=== PATIENT | male | born 1950 | race Caucasian/White ===

== ENCOUNTER 2018-04-11 12:05 | Inpatient (IN) | payer MEDICARE, OTHER ==
[~2018-04-11] VITALS: Ht 190.5 cm; Wt 85.3 kg
--- NOTE | 2018-04-11 12:24 | NUR ---
BIB [facility] WHILE WALKING HIS DOG. HEAD LAC -KO. NECK PAIN. PT AAOX4, VSS. DENIES DIZZINESS, N/V, WEAKNESS OR ANY OTHER DISCOMFORT. AWAITNG EVAL BY ERMD & WILL CONT TO MONITOR.
[2018-04-11] MEDS ORDERED: KETOROLAC TROMETHAMINE INJ 30 MG/ML VIAL IV ONE (13:00)
[2018-04-11] MEDS ORDERED: IV NS 0.9% 1,000 ML BAG IV ONE (13:00)
[2018-04-11] MEDS ORDERED: TDAP [DIPH/PERTUSSIS/TET] 0.5 ML VIAL IM ONE ×2 (13:00→13:07)
[2018-04-11 13:02] LABS: BASOPHILS % (AUTO) 0.6 % (0.0-2.0); HEMATOCRIT 36 % (39-51); HEMOGLOBIN 12.1 g/dL (13.5-17.5); LYMPHOCYTES # (AUTO) 0.9 /CMM (0.8-4.8); LYMPHOCYTES % (AUTO) 15.5 % (20.0-44.0); MEAN CORPUSCULAR HGB CONC 33 g/dl (31.0-36.0); MEAN CORPUSCULAR VOLUME 95 fL (80-96); MONOCYTES # (AUTO) 0.3 /CMM (0.1-1.30); MONOCYTES % (AUTO) 6.1 % (2.0-12.0); NEUTROPHILS # (AUTO) 4.2 /CMM (1.8-8.9); NEUTROPHILS % (AUTO) 75.8 % (43.0-81.0); PLATELET COUNT (AUTO) 73 /CMM (150-450); RED BLOOD CELL COUNT(AUTO) 3.81 MIL/uL (4.5-6.0); WHITE BLOOD COUNT (AUTO) 5.5 K/uL (4.3-11.0)
[2018-04-11] MEDS ORDERED: KETOROLAC TROMETHAMINE 15 MG/ML VIAL ONE (13:06)
[2018-04-11 13:16] LABS: CREATININE 2.7 mg/dL (0.6-1.3); POTASSIUM 4.1 mmol/L (3.5-5.1)
[2018-04-11 13:30] LABS: EOSINOPHILS % (MANUAL) 1 % (0-4); LYMPHOCYTES % (MANUAL) 23 % (16-48); MONOCYTES % (MANUAL) 5 % (0-11.0); NEUTROPHILS % (MANUAL) 71 (42-76)
--- NOTE | 2018-04-11 13:30 | NUR ---
MEDICATED PER ERMD ORDER, PT BREE WELL.
--- NOTE | 2018-04-11 14:33 | NUR ---
CALLED NEUROLOGIST (DR CANCINO) @[phone]. NO ANSWER, LEFT VOICE MAIL. Addendum: 04/11/18 at 143 by VIANCA CALLED NEUROLOGIST DR CANCINO @ [phone] ([phone]); NO ANSWER, LEFT VOICE.
--- NOTE | 2018-04-11 14:53 | NUR ---
CALLED DR CASTRO FOR CONSULT BED 2. DR BELLE IS ON PHONE WITH GLORIA.
--- NOTE | 2018-04-11 15:02 | NUR ---
CALLED PANEL @1823, DERIAN AVUGHN PAGED.
--- NOTE | 2018-04-11 15:26 | NUR ---
PT ASLEEP, EYES CLOSED BUT EASILY AWAKEN BY VERBAL STIMULI. AAOX4, VSS. DENIES CP, SOB, DIZZINESS, N/V, NUMBNESS, WEAKNESS, BLURRED VISION @ THIS TIME. SPENCER 03/23 & BREE WELL. WILL CONT TO MONITOR, @ BS.
--- NOTE | 2018-04-11 16:38 | NUR ---
REPORT GIVEN TO HERMELINDA CM FOR CONT OF CARE.
--- NOTE | 2018-04-11 17:00 | NUR ---
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
--- NOTE | 2018-04-11 17:20 | NUR ---
DESKTOP SPECIALIST: neuro status: face symmetric, equal speech, pupils reaction+, symmetric, precataract, arms/legs activity symmetric, strong
[2018-04-11 17:30] VITALS: BP 183/103
[2018-04-11 17:45] VITALS: BP 164/89
[2018-04-11 18:00] VITALS: BP 172/98
--- NOTE | 2018-04-11 18:15 | NUR ---
AIRCRAFT DISPATCHER: assessment done: SR, SBP 164-183, no any actual orders with TD admission, see is on case, pt.is with history of DM (insulin dependent), pancreatitis, home meds list is not fill out, will page/message , notified charge nurse
--- NOTE | 2018-04-11 18:30 | NUR ---
RN LENORA: will try to print out pt.medical record from pt.iPhone, no any record got from ER, charge nurse paged
--- NOTE | 2018-04-11 18:43 | NUR ---
ADMITTING MD FROM [facility] PAGED FOR ADMISSION ORDERS AWAITS RESPONSE.
[2018-04-11 18:45] VITALS: BP 170/83
--- NOTE | 2018-04-11 19:00 | NUR ---
PER EXCHANGE DR. FONTENOT IS FOAM RUBBER MOLDER NOW AND WILL GIVE ORDERS.PAGED DR. FONTENOT AND PER DR. FONTENOT HE DOESNT KNOW ANYTHING ABOUT PATIENT.HE WILL TEXT LUIS MENARD BEFORE HE CAN GIVE ORDERS,ENDORSED TO NIGHT RN TO FF. UP.
--- NOTE | 2018-04-11 19:15 | NUR ---
RN LENORA: charge nurse spoke with , he is going to text , next nurse Joy got report re all above
--- NOTE | 2018-04-11 19:17 | NUR ---
RN LENORA: unable to print out pt.med record, home meds list, notified next nurse Joy to complete home reconcile meds using pt.iphone data
[2018-04-11] MEDS ORDERED: ZOLPIDEM TARTRATE 5 MG TABLET PO PRN (19:30)
[2018-04-11] MEDS ORDERED: INSULIN REGULAR, HUMAN 100 UNIT/ML 3 ML VIAL SQ PRN (19:30)
[2018-04-11] MEDS ORDERED: ACETAMINOPHEN 325 MG TABLET PO PRN (19:30)
[2018-04-11] MEDS ORDERED: HYDROMORPHONE 1 MG/1 ML DISP.SYRIN IV PRN (19:30)
[2018-04-11] MEDS ORDERED: Z GUARD REMEDY 2 OZ OINT TP PRN (19:30)
[2018-04-11] MEDS ORDERED: ONDANSETRON HCL/PF 4 MG/2 ML VIAL IVP PRN (19:30)
[2018-04-11] MEDS ORDERED: DEXTROSE 50%-WATER 50 ML DISP.SYRIN IV PRN ×2 (19:30→22:00)
[2018-04-11 20:00] VITALS: BP 161/92
--- NOTE | 2018-04-11 20:00 | NUR ---
RN INITIAL NOTES RECEIVED PT RESTING IN BED. PT A&OX4 , ST ON MONITOR HR 102, IV IN R AC S/L, ALL NEEDS ANTICIPATED AND MET, ALL SAFETY PRECAUTION TAKEN. BED IN LOW LOCKED POSITION. CALL LIGHT WITHIN REACH. WILL CONT TO MONITOR.
[2018-04-11] MEDS: IV D5/ 0.9% NACL 1,000 ML IV PRN (20:22)
[2018-04-11] MEDS: HYDROCODONE/APAP 5/325MG 1 EACH TABLET PO PRN (20:23)
[2018-04-11] MEDS: BLOOD SUGAR DIAGNOSTIC 1 EACH STRIP IN SCH (22:56)
[2018-04-11] MEDS: INSULIN REGULAR, HUMAN 100 UNIT/ML 3 ML VIAL SQ PRN (23:03)
[2018-04-12] VITALS (7 sets, daily range): BP systolic 149–186; BP diastolic 88–95
[2018-04-12] MEDS ORDERED: BLOOD SUGAR DIAGNOSTIC 1 EACH STRIP IN SCH
[2018-04-12] MEDS ORDERED: AMLO5TAB4 PO (00:22)
[2018-04-12] MEDS ORDERED: ACET-73 PO (00:22)
--- NOTE | 2018-04-12 01:10 | NUR ---
RN NOTES PT WAS TAKEN TO CT BY RN AND COMMUNITY RESOURCE OFFICER.
[2018-04-12] MEDS: HYDROCODONE/APAP 5/325MG 1 EACH TABLET PO PRN ×4 (01:51→22:46)
[2018-04-12] MEDS: hydrALAZINE HCL IV 20 MG VIAL IV PRN ×2 (02:33→14:15)
[2018-04-12] MEDS ORDERED: PREG50CA PO (03:48)
[2018-04-12] MEDS ORDERED: ESOM40CA PO (03:48)
[2018-04-12] MEDS ORDERED: LIPA1CAP15 PO (03:48)
[2018-04-12] MEDS ORDERED: ASPI-1169 PO (03:48)
[2018-04-12] MEDS ORDERED: LOSA100T3 PO (03:48)
[2018-04-12] MEDS ORDERED: FENO145T35 PO (03:48)
[2018-04-12] MEDS ORDERED: RANI300T7 PO (03:48)
[2018-04-12] MEDS ORDERED: DULO30CA2 PO ×2 (03:48→08:11)
[2018-04-12] MEDS ORDERED: TRAM50TA2 PO (03:48)
--- NOTE | 2018-04-12 06:22 | NUR ---
RN CLOSING NOTES NO CHANGE IN PT'S CONDITION OVER NIGHT. PT WENT TO CT ORDERED. PT KEEP SAFE AND OVER NIGHT. ALL NEED ANTICIPATED AND MET.
[2018-04-12 06:23] LABS: BASOPHILS % (AUTO) 0.4 % (0.0-2.0); EOSINOPHILS % (AUTO) 1.2 % (0.0-6.0); HEMATOCRIT 32 % (39-51); HEMOGLOBIN 10.8 g/dL (13.5-17.5); LYMPHOCYTES # (AUTO) 0.8 /CMM (0.8-4.8); LYMPHOCYTES % (AUTO) 13.1 % (20.0-44.0); MEAN CORPUSCULAR HGB CONC 34 g/dl (31.0-36.0); MEAN CORPUSCULAR VOLUME 94 fL (80-96); MONOCYTES # (AUTO) 0.3 /CMM (0.1-1.30); MONOCYTES % (AUTO) 5.5 % (2.0-12.0); NEUTROPHILS % (AUTO) 79.8 % (43.0-81.0); PLATELET COUNT (AUTO) 73 /CMM (150-450); RED BLOOD CELL COUNT(AUTO) 3.36 MIL/uL (4.5-6.0); WHITE BLOOD COUNT (AUTO) 6.3 K/uL (4.3-11.0)
[2018-04-12 06:41] LABS: ALBUMIN 2.8 g/dL (3.4-5.0); BILIRUBIN,TOTAL 0.4 mg/dL (0.2-1.0); CALCIUM, SERUM 8.7 mg/dL (8.5-10.1); CREATININE 2.6 mg/dL (0.6-1.3); MAGNESIUM 2.1 mg/dL (1.8-2.4); PHOSPHORUS 3.5 mg/dL (2.5-4.9); POTASSIUM 4.3 mmol/L (3.5-5.1); TOTAL PROTEIN, SERUM 6.2 g/dL (6.4-8.2)
[2018-04-12 06:46] LABS: THYROID STIMULATING HORMONE 0.903 uIU/mL (0.358-3.74)
--- NOTE | 2018-04-12 07:30 | NUR ---
RN OPENING NOTES RECEIVED REPORT FROM OCEAN EXPORT AGENT RN. PT IS A&O X 4. RA O2 SAT IS 98%. NO COMPLAINTS OF RESPIRATORY DISTRESS. BED IS IN LOWEST AND LOCKED POSITION, CALL LIGHT WITHIN REACH. WILL CONTINUE CONTINUITY OF CARE. IV IS IN THE R AC RUNNING D5 NS @75 ML/HR.
[2018-04-12] MEDS: BLOOD SUGAR DIAGNOSTIC 1 EACH STRIP IN SCH ×4 (08:02→21:14)
[2018-04-12] MEDS ORDERED: INSU100V7 SQ (08:11)
[2018-04-12] MEDS ORDERED: ESOM20CA32 PO (08:11)
[2018-04-12] MEDS ORDERED: *INS HUMA SQ (08:11)
[2018-04-12] MEDS ORDERED: FISH12002 PO (08:11)
[2018-04-12] MEDS ORDERED: ZOLP5TAB2 PO (08:11)
[2018-04-12] MEDS ORDERED: ONDA4TAB11 PO (08:11)
[2018-04-12] MEDS ORDERED: DOCU100C36 PO (08:11)
[2018-04-12] MEDS ORDERED: MULT1TAB73 PO (08:11)
[2018-04-12] MEDS ORDERED: HYDR-4384 PO (08:11)
--- NOTE | 2018-04-12 08:11 | NUR ---
RN NOTE: RECEIVED AN ENDORSEMENT FROM THE JUVENILE CORRECTIONAL OFFICER NURSE REGARDING THE PATIENT'S MEDICATION RECONCILIATION. PER JUVENILE CORRECTIONAL OFFICER NURSE, THE PATIENT'S HOME MEDICATIONS WERE NOT PLACED IN THE SYSTEM. THE LIST OF HOME MEDICATIONS WERE PLACED IN THE SYSTEM AND INFORMED LUIS MENARD DNP ABOUT IT. AWAITING FOR THE HOSPITALIST TO DO MEDICATION RECONCILIATION. PATIENT MADE AWARE.
[2018-04-12] MEDS: PANTOPRAZOLE 40 MG TABLET.DR PO SCH ×2 (08:17→08:32)
[2018-04-12] MEDS: DOCUSATE SODIUM 100 MG CAPSULE PO SCH ×3 (08:32→17:19)
[2018-04-12] MEDS: AMLODIPINE BESYLATE 5 MG TABLET PO SCH (08:32)
[2018-04-12 08:33] LABS: EOSINOPHILS % (MANUAL) 2 % (0-4); LYMPHOCYTES % (MANUAL) 10 % (16-48); MONOCYTES % (MANUAL) 3 % (0-11.0); NEUTROPHILS % (MANUAL) 85 (42-76)
[2018-04-12] MEDS: IV D5/ 0.9% NACL 1,000 ML IV PRN ×2 (09:28→22:44)
--- NOTE | 2018-04-12 14:10 | NUR ---
RN NOTES RECHECKED PT'S BP FROM AFTERNOON VITALS. 170/77 HR 78. PT GIVEN HYDRALAZINE.
--- NOTE | 2018-04-12 14:50 | NUR ---
RN NOTE: PATIENT REFUSED TO BE SEEN AND EVALUATED BY THE PHYSICAL THERAPIST. HE PREFERRED TO STAY IN BED JUST FOR TODAY. NOTED WITH MILD DIZZINESS, BUT FELT FINE WHILE IN BED. NO NAUSEA/VOMITING NOTED. PATIENT WILL TRY TO PARTICIPATE WITH PT BY TOMORROW.
--- NOTE | 2018-04-12 15:00 | NUR ---
RN NOTES PT FRUSTRATED COMPLAINS THAT HE HAS NOT SEEN HIS DR. PT REQUESTED A CHANGE OF HOSPITALIST FROM LUIS MENARD TO MARIXA BOBBY. PROVIDER WAS MADE AWARE. EXPLAINED TO THE PT THAT LUIS MENARD DNP WAS AWARE ABOUT HIS CONCERNS PER DERIAN HE WAS STILL WITH ANOTHER PT AND WILL SEE THE PT ONCE HE IS DONE MAKING ROUNDS. PT WAS ADAMANT TO CHANGE PROVIDERS. CALLED AND SPOKE WITH DR. CRUZ WHO WAS INFORMED ABOUT SITUATION AND HE SAID FOR MELODY BOBBY DNP TO SEE THE PT. DR. BOBBY WAS INFORMED OF TRANSFER OF PT CARE TO HIM AND WAS PRESENT AT PT BEDSIDE.
--- NOTE | 2018-04-12 16:00 | NUR ---
RN NOTES LUIS MENARD DNP WAS INFORMED OF TRANSFER OF CARE TO ANOTHER HOSPITALIST. HE GAVE ORDER TO CONTINUE HOME MEDICATION.
--- NOTE | 2018-04-12 16:32 | NUR ---
RN NOTES MD IBARRA MET WITH PT REMOVED NPO STATUS.
--- NOTE | 2018-04-12 16:58 | NUR ---
RN NOTES DR. BOBBY ORDERED WOUND TX ON RIGHT BACK SIDE OF HEAD.ORDERED NOTED AND CARRIED OUT AND PT MADE AWARE.
[2018-04-12] MEDS: TRAMADOL HCL 50 MG TABLET PO SCH (17:00)
[2018-04-12] MEDS ORDERED: ZOLPIDEM TARTRATE 5 MG TABLET PO PRN (17:00)
[2018-04-12] MEDS ORDERED: ONDANSETRON 4 MG TAB.RAPDIS PO PRN (17:00)
[2018-04-12] MEDS ORDERED: HYDROCODONE/APAP 5/325MG 1 EACH TABLET PO PRN (17:00)
[2018-04-12] MEDS ORDERED: DOCUSATE SODIUM 100 MG CAPSULE PO SCH (17:00)
[2018-04-12] MEDS: LIPASE/PROTEASE/AMYLASE 1 EACH CAPSULE.DR PO SCH (17:18)
[2018-04-12] MEDS: DULOXETINE HCL 30 MG CAPSULE.DR PO SCH (17:22)
[2018-04-12] MEDS: MUPIROCIN OINT 2% 22 GM TUBE TP SCH (17:53)
[2018-04-12] MEDS: HYDROGEN PEROXIDE 480 ML BOTTLE TP SCH ×2 (17:53→21:09)
[2018-04-12] MEDS: INSULIN REGULAR, HUMAN 100 UNIT/ML 3 ML VIAL SQ PRN ×2 (18:39→21:14)
--- NOTE | 2018-04-12 19:10 | NUR ---
RN CLOSING NOTES GAVE REPORT TO DISULFURIZER TENDER RN. PT IS A&O X 4. RA O2 SAT IS 98%. NO COMPLAINTS OF RESPIRATORY DISTRESS. BED IS IN LOWEST AND LOCKED POSITION, CALL LIGHT WITHIN REACH.CONTINUITY OF CARE HAS BEEN ENDORSED TO DISULFURIZER TENDER RN. IV IS IN THE R AC RUNNING D5 NS @75 ML/HR.
--- NOTE | 2018-04-12 20:00 | NUR ---
RN INITIAL NOTES RECEIVED PT IN BED, PT IS A&O X 4, RA O2 SAT IS 98%. IV IS IN THE R AC RUNNING D5 NS @75 ML/HR.NO COMPLAINTS OF RESPIRATORY DISTRESS. BED IS IN LOWEST AND LOCKED POSITION, CALL LIGHT WITHIN REACH. BED IN LOWEST AND LOCKED POSITION. WILL CONTINUE TO MONITOR.
[2018-04-12] MEDS: FAMOTIDINE (20 MG) 20 MG TABLET PO SCH ×2 (21:00→21:10)
[2018-04-12] MEDS ORDERED: INSULIN GLARGINE, 100 UNIT/ML CARTRIDGE SQ SCH (22:00)
[2018-04-13] VITALS: BP_SYST 130; BP_SYST 161; BP_DIAS 82; BP_DIAS 98
[2018-04-13] MEDS: HYDROCODONE/APAP 5/325MG 1 EACH TABLET PO PRN (03:45)
[2018-04-13 04:00] VITALS: BP 161/94
--- NOTE | 2018-04-13 06:32 | NUR ---
RN CLOSING NOTES PT IS A&O X 4. RA O2 SAT IS 98%. NO COMPLAINTS OF RESPIRATORY DISTRESS. BED IS IN LOWEST AND LOCKED POSITION, CALL LIGHT WITHIN REACH. IV IS IN THE R AC RUNNING D5 NS @75 ML/HR.ALL NEEDS ANTICIPATED AND MED. ALL DUE MEDS GIVEN. ALL SAFETY PRECAUTIONS TAKEN. WILL ENDORSE TO AM RN.
[2018-04-13] MEDS ORDERED: PANTOPRAZOLE 40 MG TABLET.DR PO SCH (07:30)
[2018-04-13 07:37] LABS: BASOPHILS % (AUTO) 0.4 % (0.0-2.0); EOSINOPHILS % (AUTO) 1.7 % (0.0-6.0); HEMATOCRIT 32 % (39-51); HEMOGLOBIN 10.9 g/dL (13.5-17.5); LYMPHOCYTES # (AUTO) 0.9 /CMM (0.8-4.8); LYMPHOCYTES % (AUTO) 16.6 % (20.0-44.0); MEAN CORPUSCULAR HGB CONC 34 g/dl (31.0-36.0); MEAN CORPUSCULAR VOLUME 94 fL (80-96); MONOCYTES # (AUTO) 0.4 /CMM (0.1-1.30); MONOCYTES % (AUTO) 6.7 % (2.0-12.0); NEUTROPHILS # (AUTO) 4.1 /CMM (1.8-8.9); NEUTROPHILS % (AUTO) 74.6 % (43.0-81.0); PLATELET COUNT (AUTO) 70 /CMM (150-450); RED BLOOD CELL COUNT(AUTO) 3.39 MIL/uL (4.5-6.0); WHITE BLOOD COUNT (AUTO) 5.5 K/uL (4.3-11.0)
[2018-04-13 07:50] LABS: ALBUMIN 2.8 g/dL (3.4-5.0); BILIRUBIN,TOTAL 0.5 mg/dL (0.2-1.0); CALCIUM, SERUM 8.7 mg/dL (8.5-10.1); CREATININE 2.4 mg/dL (0.6-1.3); PHOSPHORUS 3.2 mg/dL (2.5-4.9); POTASSIUM 3.9 mmol/L (3.5-5.1); TOTAL PROTEIN, SERUM 6.3 g/dL (6.4-8.2)
[2018-04-13 08:00] VITALS: BP 150/85
--- NOTE | 2018-04-13 08:00 | NUR ---
LENORA RN NOTE PT IS A&O X 4.IN BED , ALL NEEDS ATTENDED, RA O2 SAT IS 98%. NO COMPLAINTS OF RESPIRATORY DISTRESS. BED IS IN LOWEST AND LOCKED POSITION, CALL LIGHT WITHIN REACH. IV IS IN THE R AC RUNNING D5 NS @75 ML/HR.ALL NEEDS ANTICIPATED AND MED. ALL SAFETY PRECAUTIONS TAKEN. ON TELE MONITOR SR , CALL LIGHT WITHIN REACH , PLAN OF CARE DISCUSSED WITH PATIENT, REFUSED COZAAR ALSO HOLD ASA PATIENT HAS DX SUBDURAL HEMATOMA WILL F\U WITH CT HEAD TODAY
[2018-04-13] MEDS: LIPASE/PROTEASE/AMYLASE 1 EACH CAPSULE.DR PO SCH ×2 (08:06→13:02)
[2018-04-13] MEDS: DOCUSATE SODIUM 100 MG CAPSULE PO SCH (08:07)
[2018-04-13] MEDS: PANTOPRAZOLE 40 MG TABLET.DR PO SCH (08:08)
[2018-04-13] MEDS: FAMOTIDINE (20 MG) 20 MG TABLET PO SCH (08:08)
[2018-04-13] MEDS: TRAMADOL HCL 50 MG TABLET PO SCH (08:10)
[2018-04-13] MEDS: AMLODIPINE BESYLATE 5 MG TABLET PO SCH (08:11)
[2018-04-13] MEDS: DULOXETINE HCL 30 MG CAPSULE.DR PO SCH (08:11)
[2018-04-13] MEDS: HYDROGEN PEROXIDE 480 ML BOTTLE TP SCH (08:13)
[2018-04-13] MEDS: MUPIROCIN OINT 2% 22 GM TUBE TP SCH (08:13)
[2018-04-13] MEDS: INSULIN REGULAR, HUMAN 100 UNIT/ML 3 ML VIAL SQ PRN ×2 (08:17→13:05)
[2018-04-13] MEDS: BLOOD SUGAR DIAGNOSTIC 1 EACH STRIP IN SCH ×2 (08:19→12:26)
[2018-04-13] MEDS ORDERED: LOSARTAN POTASSIUM 50 MG TABLET PO SCH (09:00)
[2018-04-13] MEDS ORDERED: FENOFIBRATE NANOCRYS (145 MG) 145 MG TABLET PO SCH (09:00)
[2018-04-13] MEDS ORDERED: MULTIVITAMINS,THERAGRAN 1 UDTAB TABLET PO SCH (09:00)
[2018-04-13] MEDS ORDERED: ASPIRIN 81 MG TAB.CHEW PO SCH (09:00)
[2018-04-13] MEDS ORDERED: AMLODIPINE BESYLATE 5 MG TABLET PO SCH (09:00)
[2018-04-13] MEDS ORDERED: DULOXETINE HCL 30 MG CAPSULE.DR PO SCH ×2 (09:00)
--- NOTE | 2018-04-13 09:34 | NUR ---
jose alejandro rn note ct head done as ordered ,will f\u
[2018-04-13 10:37] LABS: EOSINOPHILS % (MANUAL) 3 % (0-4); LYMPHOCYTES % (MANUAL) 18 % (16-48); MONOCYTES % (MANUAL) 11 % (0-11.0); NEUTROPHILS % (MANUAL) 68 (42-76)
--- NOTE | 2018-04-13 10:56 | NUR ---
LENORA RN NOTE PT DONE ABLE TO AMBULATE WELL WITH WALKER STILL NEED STAND BY BY ASSISTANCE
[2018-04-13] MEDS: hydrALAZINE HCL IV 20 MG VIAL IV PRN (11:22)
[2018-04-13 12:00] VITALS: BP 180/89
--- NOTE | 2018-04-13 12:00 | NUR ---
LENORA RN NOTE HAVING LUNCH , ALL NEEDS ATTENDED, NO C]O PAIN OR DISCOMFORT AT THIS TIME BUT BP 180/89 HYDRALAZINE WILL BE GIVEN ORDERED , REFUSED TO HAVE IVF, WILL NOTIFIED TO
--- NOTE | 2018-04-13 14:28 | NUR ---
LENORA RN NOTE SEEN BY JOHANA BOBBY WITH ORDER TO D\C HOME , REPORTED THAT PER PT SUGGESTED TO GO REHAB BUT STILL ORDER TO GO HOME PER PATIENT REQUEST
--- NOTE | 2018-04-13 14:30 | NUR ---
LENORA RN NOTE DISCHARGED INSTRUCTION GIVEN, UNDERSTOOD , HL REMOVED, NO BLEEDING NOTED , TELE REMOVED BELONGING SIGNED , BP 150/100 ,NO C\O HEADACHE AT THIS TIME , ELSA FRIEND AT BEDSIDE ,WILL TAKE PATIENT HOME , INSTRUCTED TO FOLLOW UP WITH PRIMARY CARE DOCTOR AND HOW TO RAKE HOME MEDS AND POSSIBLE SIDE EFFECTS, UNDERSTOOD AND DONT TAKE ASA AT THIS TIME
--- NOTE | 2018-04-13 15:01 | NUR ---
LENORA RN NOTE TAKEN TO LOBBY ON W\C WITH STABLE CONDITION WITH FRIEND AND MARINA SALES AND SERVICE SUPERVISOR
[2018-04-14 12:09] LABS: *SPE ALPHA-1-GLOBULIN 0.2 g/dL (0.0-0.4); *SPE ALPHA-2-GLOBULIN 0.8 g/dL (0.4-1.0); *SPE BETA GLOBULIN 0.9 g/dL (0.7-1.3); *SPE GLOBULIN, TOTAL 2.9 g/dL (2.2-3.9); *SPE M-SPIKE Not Observed g/dL (Not Observed); *SPEGAMMA GLOBULIN 1.1 g/dL (0.4-1.8)
[2018-04-17 13:13] LABS: PTH, INTACT 84 pg/mL (15-65)
== END 2018-04-13 15:03 | disposition home or self-care (01) | DRG 85 ==
LOC: ER 12:07 → TELE1 16:45 → TELE-TD 16:51
PROVIDERS: ADMIT Hospitalist; ATTEND Nurse Practitioner Acute Care
DX: S06.5X0A Traumatic subdural hemorrhage without loss of consciousness, initial encounter (principal); N17.0 Acute kidney failure with tubular necrosis; K86.1 Other chronic pancreatitis; Y92.89 Other specified places as the place of occurrence of the external cause; W10.9XXA Fall (on) (from) unspecified stairs and steps, initial encounter; I12.9 Hypertensive chronic kidney disease with stage 1 through stage 4 chronic kidney disease, or unspecified chronic kidney disease; E11.22 Type 2 diabetes mellitus with diabetic chronic kidney disease; N18.9 Chronic kidney disease, unspecified; M81.0 Age-related osteoporosis without current pathological fracture; Z96.642 Presence of left artificial hip joint; Z90.49 Acquired absence of other specified parts of digestive tract; Z87.442 Personal history of urinary calculi; E86.9 Volume depletion, unspecified; E11.65 Type 2 diabetes mellitus with hyperglycemia; D69.6 Thrombocytopenia, unspecified; Z98.890 Other specified postprocedural states; D63.8 Anemia in other chronic diseases classified elsewhere; F43.9 Reaction to severe stress, unspecified
CPT/HCPCS: 36415; 70450-TC; 71045-TC; 72125-TC; 72170-TC; 80048-TC; 80053-TC; 80061-TC; 82550-TC; 82962-TC; 83735-TC; 83970; 84100-TC; 84155; 84165; 84443-TC; 85025-TC; 85730-TC; 87081-TC; 90715; 97116-TC; A6403; G0378; J0360; J1170; J1815; J1885; J2405; J7030; J7042; L0172